=== PATIENT | female | born 1960 | race Caucasian/White ===

== ENCOUNTER 2016-10-27 10:36 | Emergency (ER) | payer BC ==
[~2016-10-27] VITALS: Ht 157.5 cm; Wt 87.5 kg
[~2016-10-27 10:36] MED LIST: HYDR-3498 PO; ONDA4TAB35 PO; OXYC-281 PO; TAMS-14 PO
[2016-10-27 10:45] VITALS: Ht 157.5 cm; Wt 87.5 kg
[2016-10-27] MEDS ORDERED: NAPR-260 PO (12:07)
--- NOTE | 2016-10-27 12:15 | ERD ---
ER Documentation Chief Complaint Date/Time DATE: 10/27/16 TIME: 12:11 Chief Complaint LT KNEE PAIN X1 WEEK HPI Patient is a 56-year-old female who presents to the ED with chronic left knee pain. She states that she had an x-ray done 2 weeks ago which showed osteoarthritis. Patient states that she is here to see an research quality assurance specialist. She states that she has pain in her left knee, pain with walking. She states that she is able to ambulate but states that there is pain with bending her knee. Denies radiation of pain. Denies pain above or below her knee. Denies fever or chills. She has not taken any medication for her symptoms. No other complaints. Denies recent surgeries or recent travel. ROS All systems reviewed and are negative except as per history of present illness. Medications Home Meds Active Scripts Naproxen* (Naprosyn*) 500 Mg Tablet, 500 MG PO BID Y for PAIN AND/OR INFLAMMATION, #30 TAB Prov:ROB KEITH PA-C 10/27/16 Tamsulosin Hcl* (Flomax*) 0.4 Mg Cap.er.24h, 0.4 MG PO BID, #30 CAP Prov:TEREZA CHARLES MD 12/30/14 Ondansetron Hcl* (Zofran* ODT) 4 mg -ODT Tab.disper, 4 MG PO Q6 Y for NAUSEA AND /OR VOMITING, #10 TAB Prov:DONOVAN HUMPHREY MD 12/30/14 Hydrocodone Bit-Acetaminophen* (Liberty*) 5-325 Mg Tab, 1 TAB PO Q6 Y for PAIN, # 20 TAB Prov:DONOVAN HUMPHREY MD 12/30/14 Reported Medications Oxycodone Hcl-Acetaminophen* (Percocet*) 5-325 Mg Tablet, 1 TAB PO Q4H Y for PAIN, TAB 12/30/14 Allergies Allergies: Coded Allergies: No Known Allergy (Unverified , 12/30/14) PMhx/Soc Medical and Surgical Hx: pt denies Medical Hx, pt denies Surgical Hx History of Surgery: No Anesthesia Reaction: No Hx Neurological Disorder: No Hx Respiratory Disorders: No Hx Cardiac Disorders: No Hx Psychiatric Problems: No Hx Miscellaneous Medical Probl: No Hx Alcohol Use: No Hx Substance Use: No Hx Tobacco Use: No Smoking Status: Never smoker Physical Exam Vitals Vital Signs Date Time Temp Pulse Resp B/P Pulse Ox O2 Delivery O2 Flow Rate FiO2 10/27/16 10:45 98.3 85 16 146/78 97 Physical Exam GENERAL: Well-developed, well-nourished female. Appears in no acute distress. LUNG: Clear to auscultation bilaterally. No rhonchi, wheezing, rales or coarse breath sounds. HEART: Regular rate and rhythm. No murmurs, rubs or gallops. Extremities: Equal pulses bilaterally. No peripheral clubbing, cyanosis or edema. No unilateral leg swelling. No swelling or erythema. No tenderness on palpation. No pain above or below knee joint. No step-offs or deformities. Range of motion intact. No laceration or open wounds. Negative Homans sign. No calf pain. NEUROLOGIC: Alert and oriented. Moving all four extremities. 5/5 strength in all extremities. Normal speech. Steady gait. SKIN: Normal color. Warm and dry. No rashes or lesions. Capillary refill < 2 seconds Procedures/MDM ER COURSE: I kept the patient and/or family informed of laboratory and diagnostic imaging results throughout the emergency room course. MEDICAL DECISION MAKING: This is a 56-year-old female who presents with chronic left knee pain []. Vital signs were reviewed. Patient is afebrile. Patient is not hypoxic. Patient is not toxic or ill-appearing. Patient has chronic left knee pain of unknown etiology, likely osteoarthritis. Low suspicion for dislocation, fracture, septic joint, compartment syndrome, osteomyelitis, avascular necrosis, DVT, Achilles tendon rupture, cellulitis. At this time, unable to rule out any tendon and ligament injuries. Patient was given an Say wrap. [Say wrap Assessment: Neurovascularly intact post say wrap placement with good fit.] Patient's extremity symptoms have stabilized while they have been evaluated in the department and are appropriate for outpatient follow up. DISCHARGE: At this time, patient is stable for discharge and outpatient management with no new complaints during the ER course. Patient was sent home with Aniket and a list of specialists to follow-up with.. Patient will be discharged home with instructions to recheck for new or worsening symptoms such as fever, nausea, weakness, LOC and to follow up with primary care in the next 1-2 days. Patient was advised to return to the ER for any new or worsening symptoms. Plan was discussed and patient and/or family understands and agrees. Home instructions were given. Departure Diagnosis: Primary Impression: Knee pain, left Chronicity: acute Qualified Code: M25.562 - Acute pain of left knee Condition: Stable Patient Instructions: What Is Osteoarthritis? Referrals: SANJEEV EUGENE MD,VIRY ZAMORA,MEY KANG,IN CHUCKIE MD SPEARS,ADA BARTH,COURTNEY Griffiths MD Additional Instructions: Llame al doctor MAANA y juvencio angela BROCK PARA DENTRO DE 1-2 PATE.Dgale a la secretaria que nosotros le instruimos hacer esta brock.Avise o llame si manriquez condicin se empeora antes de la brock. Regresa aqui si peor o no mejor. ROB KEITH PA-C Oct 27, 2016 12:15
== END 2016-10-27 12:32 | disposition home or self-care (01) ==
LOC: FTE 10:36
DX: M25.562 Pain in left knee (principal)
CPT/HCPCS: 99283